=== PATIENT | female | born 1980 | race Caucasian/White ===

== ENCOUNTER 2021-08-27 17:22 | Emergency (ER) | payer BC, SELFPAY ==
[2021-08-27 17:35] VITALS: BP 124/82; PULSE 96; RESP 18; TEMP 36.1; O2SAT 100
--- NOTE | 2021-08-27 19:11 | ED.GENADULT ---
HPI - General Adult General Chief complaint: Skin/Abscess/Foreign Body Stated complaint: EXPOSED TO FISH TB 26WEEKS PREG Time Seen by Provider: 08/27/21 19:04 Source: patient Mode of arrival: ambulatory Limitations: no limitations History of Present Illness HPI narrative: Patient is a 40 y/o female who presents to the ED with c/o a rash to her bilateral hands. Patient reports she has working in her fish tank filled with water and fish every day for the last week and a half. She noticed that a few of her fish began to look ill since working in the tank. Over the last couple days, she has noticed a mild rash to bilateral dorsal hands. The rash is itchy and burning. Denies significant pain. She denies having any open wounds, but does note she recently clipped her cuticles and did bleed from a few fingers. 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 Patient states she otherwise feels fine and denies any fever, chills, nausea, vomiting, cough, shortness of breath. Patient is currently 26 weeks . G2, P1. [employer] TE[employer] is Dr. Marely Trinh. Denies any abdominal pain, vaginal bleeding, leakage of fluid, urinary symptoms. She is feeling baby move. Related Data Allergies Allergy/AdvReac Type Severity Reaction Status Date / Time No Known Allergies Allergy Verified 08/27/21 17:38 Review of Systems Review of Systems: CONSTITUTIONAL: Denies fever, chills. RESPIRATORY: Denies cough or dyspnea. GASTROINTESTINAL: Denies abdominal pain, nausea, vomiting, or diarrhea. GENITOURINARY: Denies vaginal bleeding, leakage of fluid, dysuria, or hematuria. SKIN: Reports itchy/burning rash to bilateral dorsal hands. MUSCULOSKELETAL: Denies joint pain. NEUROLOGIC: Denies headache, numbness, or weakness. All systems reviewed & are unremarkable except as noted in HPI and below [facility] Past Medical History Medical History (Updated 08/28/21 @ 02:39 by Lindsay Loya PA-C) Granuloma annulare Surgical History Surgical History (Updated 08/27/21 @ 21:02 by Lindsay Loya PA-C) History of delivery Social History Social History (Updated 08/27/21 @ 21:02 by Lindsay Loya PA-C) Smoking status: Never smoker Exam Narrative: GENERAL: Well appearing, well-nourished, non-toxic, in no acute distress. HEAD: Normocephalic, atraumatic. NECK: Supple. No adenopathy, no masses. RESPIRATORY: Airway patent, respirations nonlabored. CARDIOVASCULAR: Regular rate and rhythm without murmurs, rubs, or gallops. Radial pulses 2+ and equal bilaterally. MUSCULOSKELETAL: Moves all extremities. Strength/ROM intact without gross deformities. SKIN: Warm, dry, normal color. Small patches of eczematous inflammation and papules to bilateral dorsal hands, over area of 1st & 2st metacarpals. No vesicles or pustules. Dry skin. Mild erythema. No tenderness to palpation. NEURO: A&O X3. Speech clear. Cranial nerves II-XII grossly intact. Steady gait. No ataxic movements. PSYCHIATRIC: Appropriate mood and affect. Normal interaction. Course Consultations Consultation #1: Discussed case with Dr. Roldan, [employer] TE[employer] on-call for Dr. Marely Trinh. Agreed with topical steroid cream. Advised patient to follow up in the office for further evaluation. Date: 08/27/21 Time: 21:00 Vital Signs Vital signs: Vital Signs Temperature 97.0 F L 08/27/21 17:35 Pulse Rate 96 08/27/21 17:35 Respiratory Rate 18 08/27/21 17:35 Blood Pressure 124/82 08/27/21 17:35 Pulse Oximetry 100 08/27/21 17:35 Temperature 97.0 F L 08/27/21 17:35 Pulse Rate 96 08/27/21 17:35 Respiratory Rate 18 08/27/21 17:35 Blood Pressure 124/82 08/27/21 17:35 Pulse Oximetry 100 08/27/21 17:35 Medical Decision Making [facility] Narrative Medical decision making narrative: Patient presented to ED with a few day history of rash to bilateral hands after working in fish tank. Currently 26 weeks . Vital signs stable upon arrival.
[2021-08-27 20:23] LABS: Basophils Percent Auto 0.3 % (0.2-1.2); Eosinophils Absolute Auto 0.2 K/mm3 (0-0.3); Eosinophils Percent Auto 1.5 % (0-4.4); Hematocrit 36.5 % (37.0-47.0); Hemoglobin 12.4 g/dL (12.0-15.0); Immature Granulocyte Absolute 0.09 K/mm3 (0.00-0.031); Immature Granulocyte Percent A 0.8 % (0-0.5); Lymphocytes Absolute Auto 2.78 K/mm3 (0.9-3.2); Mean Corpuscular Hemoglobin 31.8 pg (26-34); Mean Corpuscular Volume 93.6 fl (80-100); Mean Platelet Volume 9.9 fl (7.4-10.4); Monocytes Absolute Auto 0.8 K/mm3 (0.1-0.6); Monocytes Percent Auto 7.2 % (2.6-8.5); Neutrophils Absolute Auto 6.9 K/mm3 (1.3-6.7); Neutrophils Percent Auto 64.2 % (45.5-73.1); Platelet Count Result 210 k/mm3 (150-375); Red Cell Distribution Width 13.4 % (11.5-14.5); White Blood Count 10.7 K/mm3 (4.5-10.0)
[2021-08-27 20:33] LABS: Alanine Aminotransferase 19 U/L (6-35); Albumin Level 3.7 g/dL (3.5-5.1); Alkaline Phosphatase 87 U/L (38-126); Anion Gap 3 mmol/L (8-16); Aspartate Amino Transferase 25 U/L (14-36); Bilirubin,Total 0.2 mg/dL (0.2-1.3); Blood Urea Nitrogen 6 mg/dL (7-17); Calcium 8.7 mg/dL (8.4-10.2); Carbon Dioxide 21 mmol/L (22-30); Chloride 107 mmol/L (98-107); Estimated Glomerular Filt Rate > 60; Glucose 94 mg/dL (65-110); Potassium 3.8 mmol/L (3.4-5.0); Sodium 131 mmol/L (137-145)
== END 2021-08-27 21:29 | disposition home or self-care (01) ==
PROVIDERS: Physician Assistant; Emergency Provider General Practice; PCP Family Medicine
DX: R21 Rash and other nonspecific skin eruption (principal); Z33.1 Pregnant state, incidental
CPT/HCPCS: 36415; 80053; 85025; 99283

== ENCOUNTER 2021-09-09 08:40 | Observation (INO) | payer BC, SELFPAY ==
[2021-09-09 08:51] VITALS: BP 117/64; PULSE 111
[2021-09-09 09:00] VITALS: BP 114/80; PULSE 119
[2021-09-09 09:07] VITALS: BMI 35.9
--- NOTE | 2021-09-09 09:07 | OBADM ---
This patient, Darshana Min, admitted to the OB room OB Post 117 for observation. Patient/family oriented to hospital policies and general routines including ID bracelet, bed and alarms, visiting hours, pain management, procedures, bathroom and other care routines, personal items, smoking policy, room service/diet, and visiting hours. Patient/Family are encouraged to report perceived risks to care and to ask questions if they do not understand what they are told or what they should do.
[2021-09-09 09:16] VITALS: BP 106/70; PULSE 110
[2021-09-09 09:20] LABS: Appearance Urine Slightly Cloudy (Clear); Bilirubin Urine Negative (Negative); Blood Urine Negative (Negative); Color Urine Yellow (Yellow); Glucose Urine UA Negative (Negative); Ketones Urine Trace mg/dL (Negative); Leukocyte Esterase Ur Negative LEU/UL (Negative); Nitrate Urine Negative (Negative); Protein Urine 1+ mg/dL (Negative); Specific Grav Ur 1.025 (1.001-1.035); Urobilinogen Urine 0.2 mg/dL (<2.0); pH Urine 6.5 (5.0-9.0)
[2021-09-09 09:24] LABS: Bacteria Urine Trace /hpf; Mucus Urine Rare /lpf; Squamous Epithelial Cell Urine Many /hpf (Few)
[2021-09-09 09:30] VITALS: BP 103/78; PULSE 109
[2021-09-09] MEDS: ACETAMINOPHEN 500 MG TABLET 1000 MG PO (09:33)
[2021-09-09 10:12] LABS: Add Urine Microscopic? YES
--- NOTE | 2021-09-19 08:10 | P.PNOB_ITS ---
OB - Triage/Final Diagnosis Visit Information Date of evaluation: 09/09/21 Reason for evaluation: other (abdominal pain) Comments/Additional reasons for admission: I have assessed the risk for this patient, Darshana Shila Min, and determined that she would benefit from observation care. Evaluation Laboratory results: Laboratory Tests 09/09/21 09:12 Urine Color Yellow Urine Appearance Slightly cloudy Urine pH 6.5 Ur Specific [place] 1.025 Urine Protein 1+ H Urine Glucose (UA) Negative Urine Ketones Trace Ur Blood (Man) Negative Urine Nitrate Negative Urine Bilirubin Negative Urine Urobilinogen 0.2 Leukocyte Esterase Rfl Negative Urine RBC 3-5 H Urine WBC 4-6 H Ur Squamous Epith Cells Many H Urine Bacteria Trace Urine Mucus Rare
== END 2021-09-09 09:43 | disposition home or self-care (01) ==
PROVIDERS: Admitting Provider Student in an Organized Health Care Education/Training Program; PCP Family Medicine; Visit Provider Student in an Organized Health Care Education/Training Program
DX: O26.899 Other specified pregnancy related conditions, unspecified trimester (principal); R10.9 Unspecified abdominal pain; Z3A.00 Weeks of gestation of pregnancy not specified
CPT/HCPCS: 81001; A9270; G0378; G0379

== ENCOUNTER 2021-10-05 10:08 | Outpatient (RCR) | payer BC, SELFPAY | END 2021-11-23 12:37 | disposition home or self-care (01) | LOC: ANHDMC 10:08 | PROVIDERS: PCP Family Medicine; Visit Provider Obstetrics & Gynecology | DX: O24.319 Unspecified pre-existing diabetes mellitus in pregnancy, unspecified trimester (principal); Z71.89 Other specified counseling; Z3A.00 Weeks of gestation of pregnancy not specified | CPT/HCPCS: G0108 ==

== ENCOUNTER 2021-11-24 08:57 | Outpatient (CLI) | payer BC, SELFPAY ==
[2021-11-24 09:25] LABS: Hematocrit 30.4 % (37.0-47.0); Hemoglobin 9.8 g/dL (12.0-15.0); Mean Corpuscular HGB Conc 32.2 g/dl (32-36); Mean Corpuscular Hemoglobin 30.4 pg (26-34); Mean Corpuscular Volume 94.4 fl (80-100); Mean Platelet Volume 11.1 fl (7.4-10.4); Platelet Count Result 187 k/mm3 (150-375); Red Blood Count 3.22 M/mm3 (4.2-5.4); Red Cell Distribution Width 15.9 % (11.5-14.5); White Blood Count 6.5 K/mm3 (4.5-10.0)
[2021-11-26 07:51] LABS: Rapid Plasma Reagin Non-Reactive (NonReactive)
== END 2021-11-24 08:58 | disposition home or self-care (01) ==
LOC: ANHLAB 08:58
PROVIDERS: PCP Family Medicine; Visit Provider Obstetrics & Gynecology
DX: Z34.90 Encounter for supervision of normal pregnancy, unspecified, unspecified trimester (principal); Z3A.00 Weeks of gestation of pregnancy not specified
CPT/HCPCS: 36415; 85027; 86592; 86850; 86900; 86901

== ENCOUNTER 2021-11-26 04:48 | Inpatient (IN) | payer BC, SELFPAY ==
--- NOTE | 2021-11-22 16:29 | PM.IMHP ---
H&P: HPI History of Present Illness Date/Time: 11/22/21 16:29 Chief Complaint: Term with previous section and desiring permanent sterilization Narrative: Cyst 41 year 3 para 1011 whose last menstrual period was 02/27/2021, EDC is 12/02/2021, who presents at 39 weeks gestation for repeat section and bilateral tubal ligation. She had gestational high diabetes with this but has been diet controlled. She has good dates with a 7 week ultrasound confirming dates. She understands that a tubal ligation as a permanent irreversible procedure with a failure rate of 06/999 subsequent risk of ectopic bleeding and . She is negative for group B strep under has been otherwise uncomplicated PMFSH Past Medical History Medical History Granuloma annulare Surgical History Surgical History History of delivery Social History Social History Smoking status: Never smoker Substance use: never Spiritual care concerns: No Meds Home Medications and Allergies Home Medications Medication Instructions Recorded Confirmed Type omeprazole 20 mg capsule,delayed 20 mg PO DAILY 11/01/21 11/01/21 History release prenat.vits,ismael,bma-cawi-wwpni 1 tablet PO DAILY 11/01/21 11/01/21 History Allergies Allergy/AdvReac Type Severity Reaction Status Date / Time No Known Allergies Allergy Verified 11/01/21 12:43 Exam Chest: Chest palpation & inspection: normal inspection of the chest Resp: Effort & Inspection: normal respiratory effort Cardio: Rate: regular rate Rhythm: regular rhythm GI: Inspection: normal to inspection and other (Soft gravid uterus is palpable) : External Female Exam: normal external appearance Speculum Exam - Vagina: normal appearance of the vagina Speculum Exam - Cervix: normal appearance of the cervix Bimanual exam- vagina & uterus: enlarged (Soft and gravid) Assessment and Plan Assessment and plan (1) History of delivery: Code(s): Z98.891 - History of uterine scar from previous surgery Status: Acute (2) Term : Code(s): Z34.90 - Encounter for supervision of normal , unspecified, unspecified trimester Status: Acute (3) Sterilization: Code(s): Z30.2 - Encounter for sterilization Status: Acute Plan Repeat low transverse section and bilateral tubal ligation
[2021-11-26] VITALS (63 sets, daily range): BP systolic 45–132; BP diastolic 23–106; PULSE 71–136; RESP 15–19; TEMP 36.1–36.9; O2SAT 94–100; BMI 37.8
--- NOTE | 2021-11-26 04:48 | LDADM ---
This patient, Darshana Min, was admitted to Labor/Delivery/Recovery 119 on 11/26/21 at 04:48. Plans for labor, pain management and were discussed with patient. Patient/family oriented to hospital policies and general routines including ID bracelet, bed and alarms, visiting hours, pain management, procedures, bathroom and other care routines, personal items, smoking policy, room service/diet and guest tray routines, security routines, and visiting hours. Patient/Family are encouraged to report perceived risks to care and to ask questions if they do not understand what they are told or what they should do. See OBIX for further documentation.
[2021-11-26] MEDS: LACTATED RINGERS 1,000 ML 125 ML IV CONT ×3 (05:22→07:15)
--- NOTE | 2021-11-26 06:11 | WPDHPUPDATE1 ---
History and Physical Update Update Date/Time: 11/26/21 06:11 History and Physical has been reviewed, including an updated exam of the patient. There are NO changes in the patient's condition. Risks, benefits, and alternatives have been discussed and questions answered. Patient agrees to proceed with procedure.
--- NOTE | 2021-11-26 06:43 | P.PNAN_ITS ---
Anes - Eval Pre Procedure Procedure: Operation Date: 11/26/21 07:30 Proposed Procedures p Repeat Section - Alin Trinh MD Date/Time: 11/26/21 06:43 Surgeon: Repeat c section with BTL Preop Diagnosis: Previous c section, desires sterility Pre Op Diagnosis: Repeat C/S Patient Data Age: 41 Gender: F Height: 1.47 m Weight: 82 kg Last Vital Signs Temp 97.9 F 11/26/21 05:22 Pulse 107 H 11/26/21 06:30 BP 104/75 11/26/21 06:30 O2 Del Method Room Air 11/26/21 05:15 Allergies Allergy/AdvReac Type Severity Reaction Status Date / Time No Known Allergies Allergy Verified 11/01/21 12:43 Home Medications Medication Instructions Recorded Confirmed Type omeprazole 20 mg capsule,delayed 20 mg PO DAILY 11/01/21 11/26/21 History release prenat.vits,ismael,weh-ndig-wjvwr 1 tablet PO DAILY 11/01/21 11/26/21 History hydrocodone 5 mg-acetaminophen 325 1 tablet PO Q4H PRN pain #30 tabs 11/26/21 Rx mg tablet Patient hx anesthesia problems: none Family hx anesthesia problems: none Results Review: All pre-operative results and documents have been reviewed as part of the pre- operative evaluation. [facility] Past Medical History Medical History Anxiety Anxiety and depression Granuloma annulare Obesity Surgical History Surgical History History of delivery Social History Social History Smoking status: Former smoker Tobacco type: cigarettes Second hand tobacco smoke exposure: No Substance use: never Spiritual care concerns: No Exam Day of Procedure 11/26/21 06:43 Patient weight: obese Airway: Mallampati scale class II
[2021-11-26] MEDS: ceFAZolin 2 GM/D5W 50 ML 2 GM/50 ML BAG IVPB (06:57)
--- NOTE | 2021-11-26 07:14 | P.PNAN_ITS ---
Anes - Eval Final PreProcedure Day of Procedure 11/26/21 07:14 Patient weight: overweight Heart: regular rate and rhythm Lungs: clear to auscultation Airway: Mallampati scale class III Neurological: alert and oriented Last oral intake: >/= 8 hours ASA classification: III Emergent: no Anesthetic plan: proceed Anesthesia type and monitoring: general Other findings: GDM Results Review: All pre-operative results and documents have been reviewed as part of the pre- operative evaluation. Informed Consent: The patient's anesthetic plan and its attendant risks and benefits were discussed with the patient/family/POA. Questions were solicited and answers provided to the satisfaction of the patient/family/POA.
--- NOTE | 2021-11-26 07:43 | P.OP_ITS ---
Procedure Note - Detailed Date of Procedure 11/26/21 Pre-op Diagnosis Repeat C/S. Desires permanent sterilization Post-op Diagnosis Same Procedure Performed repeat low-transverse section and right tubal ligation via modified P omeroy method Surgeon Alin Trinh MD Anesthesia Spinal Indications this is a 41-year-old female with previous section and previous left salpingo-oophorectomy at term for repeat section and right tubal ligation Findings male infant Apgars 8 9 left ovary and tube surgically absent Description of Procedure the patient is prepped draped in the normal sterile fashion placed in the dorsal lithotomy position under excellent general spinal anesthetic the abdomen was entered in Pfannenstiel fashion progressive layers of fascia. Fascia incised midline carried in upward outward fashion bilaterally. The underlying muscles were sharply dissected. Parietal peritoneum 0 by Paz clamps and by sharp dissection. This was carried superiorly and inferiorly to the dome of the bladder. Bladder blade was placed. Bladder flap was formed. A low-transverse incision made. The head delivered in the TITUS position. Anterior posterior shoulder delivered spontaneously. Cord clamped x2 and cut. Infant passed off the table and excellent clot cry. Placenta delivered intact manually. Uterus removed from the abdomen and wrapped in moist towel. After to removing debris and blood from the uterus. The uterus was then closed with continuous running 0V Vicryl from lateral edge to lateral edge. This was followed by 2nd imbricating running locking 0 Vicryl from lateral edge to lateral edge. The left fallopian tube was surgically absent. The right fallopian tube was grasped at its midportion. A good knuckle of tube was formed and free tied with 0 c hromic. The peritoneum between pierced. The distal and proximal legs were then free tied with 0 chromic. The portion of tube between the removed and passed off as portion of right fallopian tube. Hemostasis was assured uterus returned the abdomen. The clots and debris are removed from the uterus. The laps removed and accounted for. The fascia closed with continuous running 0 Vicryl from lateral edge to midline bilaterally. Irrigation subcutaneous layer and the skin closed with 4 Monocryl and glue. Blood loss was estimated at 375. All sponge, needle, instrument counts were correct. There were no immediate complications as mom and baby doing fine at the time of this dictation Estimated Blood Loss 375 Drains No Packing No Pathology Yes ( portion of right fallopian tube) Complications No immediate complications Condition Stable Disposition PACU
[2021-11-26] MEDS: KETOROLAC 30 MG/ML VIAL (*BKC) 15 MG IV PUSH (08:01)
[2021-11-26] MEDS: MORPHINE SULFATE INJ (*CRX) 10 MG/ML AMP 2 MG IV PUSH ×3 (09:21→09:56)
--- NOTE | 2021-11-26 10:10 | PC.NURSE ---
Patient transferred to post room #291 via stretcher. Support person present. Oriented to unit, room, information board, rooming in, admission packet and security measures. Patient verbalizes understanding.
[2021-11-26] MEDS: OXYTOCIN 30 UNITS/NS 500 ML 30 UNITS/500 ML BAG 125 UNITS IV CONT (10:36)
[2021-11-26] MEDS: KETOROLAC 30 MG/ML VIAL (*BKC) IV PUSH (11:14)
[2021-11-26 13:26] LABS: Glucose Point of Care 116 mg/dl (65-105)
[2021-11-26] MEDS: DEXTROSE 5%/0.45% SOD CHL 1,000 ML 125 ML IV CONT (14:10)
[2021-11-26] MEDS: POLYSACCHARIDE IRON COMPLEX 150 MG CAPSULE PO (16:31)
[2021-11-26] MEDS: DOCUSATE SODIUM 100 MG CAPSULE PO (16:31)
[2021-11-26] MEDS: HYDROcodone/acetaminophen (*CRX) 10-325 MG TABLET 1 TAB PO ×2 (16:32→20:42)
[2021-11-26] MEDS: IBUPROFEN 600 MG TABLET PO (20:41)
[2021-11-27 00:20] VITALS: BP 98/53; PULSE 92; RESP 16; TEMP 36.6; O2SAT 96
[2021-11-27 04:10] VITALS: BP 104/63; PULSE 88; RESP 18; TEMP 36.6; O2SAT 99
[2021-11-27] MEDS: HYDROcodone/acetaminophen (*CRX) 10-325 MG TABLET 1 TAB PO ×4 (04:36→22:04)
[2021-11-27] MEDS: IBUPROFEN 600 MG TABLET PO ×3 (04:37→19:12)
[2021-11-27 05:26] LABS: Basophils Percent Auto 0.2 % (0.2-1.2); Eosinophils Absolute Auto 0.1 K/mm3 (0-0.3); Eosinophils Percent Auto 0.8 % (0-4.4); Hematocrit 24.8 % (37.0-47.0); Hemoglobin 7.8 g/dL (12.0-15.0); Immature Granulocyte Absolute 0.04 K/mm3 (0.00-0.031); Immature Granulocyte Percent A 0.4 % (0-0.5); Lymphocytes Absolute Auto 1.52 K/mm3 (0.9-3.2); Lymphocytes Percent Auto 16.8 % (18.3-44.2); Mean Corpuscular HGB Conc 31.5 g/dl (32-36); Mean Corpuscular Volume 95.4 fl (80-100); Mean Platelet Volume 10.8 fl (7.4-10.4); Monocytes Absolute Auto 0.8 K/mm3 (0.1-0.6); Monocytes Percent Auto 8.8 % (2.6-8.5); Neutrophils Absolute Auto 6.6 K/mm3 (1.3-6.7); Platelet Count Result 145 k/mm3 (150-375); Red Cell Distribution Width 16.3 % (11.5-14.5); White Blood Count 9.1 K/mm3 (4.5-10.0)
--- NOTE | 2021-11-27 06:49 | P.PNOB_ITS ---
OB - PN: Subj Subjective Date/time seen: 11/27/21 06:49 Patient comments: no complaints and pain well controlled baby status: doing well OB - PN: Obj Data Labs CBC & Chem 7: 11/27/21 05:20 Labs: Laboratory Results - last 24 hr 11/26/21 11/27/21 05:26 05:20 WBC 9.1 RBC 2.60 L Hgb 7.8 L Hct 24.8 L MCV 95.4 MCH 30.0 MCHC 31.5 L RDW 16.3 H Plt Count 145 L MPV 10.8 H Immature Gran % (Auto) 0.4 Neut % (Auto) 73.0 Lymph % (Auto) 16.8 L Isabella % (Auto) 8.8 H Eos % (Auto) 0.8 Baso % (Auto) 0.2 Lymph # (Auto) 1.52 Isabella # (Auto) 0.8 H Eos # (Auto) 0.1 Baso # (Auto) 0.0 Abs Immat Gran (auto) 0.04 H Absolute Neuts (auto) 6.6 Absolute Nucleated RBC 0.0 Nucleated RBC % 0.0 POC Capillary Glucose 116 H OB - PN A/P Plan day: 1 Plan: routine care Time Spent With Patient Time: Total time spent is greater than 50% in coordination of care (as documented) at patient's floor/unit and/or counseling patient: Time with patient: less than 15 minutes
--- NOTE | 2021-11-27 06:49 | PM.DS ---
DS: Admitting Diagnosis Discharge Date 11/28/2021 Admitting Diagnosis Term previous section / desires permanent sterilization DS: Discharge Diagnosis Discharge Diagnosis (1) Sterilization: Code(s): Z30.2 - Encounter for sterilization Status: Acute (2) Term : Code(s): Z34.90 - Encounter for supervision of normal , unspecified, unspecified trimester Status: Acute (3) History of delivery: Code(s): Z98.891 - History of uterine scar from previous surgery Status: Acute DS: Summary Hospital Course Reason for hospitalization: repeat section tubal ligation Hospital Course: the patient was admitted for repeat section and right salpinx objective me secondary to desiring permanent sterilization. Her hospital course was unremarkable. She remained afebrile. She was up, voiding difficulty ambulating and general complaints. Routine discharge instructions were given. Time Spent with Patient Time attestation: Total time spent providing and/or coordinating discharge services: DS: Data Data Completed and Pending Pending studies at discharge: Pending at discharge 11/26/21 07:27 Surgical [PTH] Routine Labs on day of discharge: Labs from last 24 hours 11/27/21 11/26/21 05:20 05:26 WBC 9.1 RBC 2.60 L Hgb 7.8 L Hct 24.8 L MCV 95.4 MCH 30.0 MCHC 31.5 L RDW 16.3 H Plt Count 145 L MPV 10.8 H Immature Gran % (Auto) 0.4 Neut % (Auto) 73.0 Lymph % (Auto) 16.8 L [place] % (Auto) 8.8 H Eos % (Auto) 0.8 Baso % (Auto) 0.2 Lymph # (Auto) 1.52 [place] # (Auto) 0.8 H Eos # (Auto) 0.1 Baso # (Auto) 0.0 Abs Immat Gran (auto) 0.04 H Absolute Neuts (auto) 6.6 Absolute Nucleated RBC 0.0 Nucleated RBC % 0.0 POC Capillary Glucose 116 H Discharge Plan Discharge Attending physician on discharge: Alin Ferrera Discharging Clinician: Alin Ferrera Patient Disposition: Home, Self-Care Activity: may shower, no straining, may drive after 2 weeks and pelvic rest Diet: heart healthy Wound Care Instructions: follow printed instructions Discharge Instructions: Education: Mom and Baby Guide Given to: Mother Follow-Up: Call your delivering provider's office for an appointment to be seen in: 1 Week for incision check and 6 weeks for exam Mom and baby should come to the [facility] for the follow-up appointment. Appointment Date/Time: November 29, 2021 at 10:00 am What to expect at your follow-up visit: Blood Pressure Check, Physical Assessment Call [phone] if you are unable to keep your appointment time. BREAST CARE: * Wear a snug supportive bra. * For engorgement discomfort: Breast Feeding: * Apply warm moist washcloths * Express milk as needed to relieve engorgement * Wear loose clothing * For sore nipples: * Identify correct latch-on * Apply warm moist washcloths before and after nursing * Air dry nipples after nursing * May apply Lansinoh cream to nipples ABDOMINAL INCISION: (if applicable) * Allow incision to air dry * Do NOT use lotions for powders on your incision * When showering, allow soap and water to run over the incision, but do not scrub incision EPISIOTOMY/PERINEAL CARE: * Until bleeding stops, use your gorge bottle after urinating * Change your pad frequently throughout the day * No tub baths until seen by your physician - You may shower ACTIVITY: * Rest as much as possible. * Do not exercise or lift anything heavier than your baby (such as laundry or other children.) * Avoid stairs or driving as much as possible for about 2 weeks and no longer taking narcotic pain medication. * Do not put anything into the vagina. No douching, tampons, or sexual activity until seen by physician. NOTIFY PHYSICIAN IF
[2021-11-27 07:50] VITALS: BP 103/76; PULSE 84; RESP 18; TEMP 36.6; O2SAT 100
[2021-11-27 08:00] VITALS: PULSE 84; RESP 18; O2SAT 100
[2021-11-27] MEDS: POLYSACCHARIDE IRON COMPLEX 150 MG CAPSULE PO ×3 (08:00→17:23)
[2021-11-27] MEDS: DOCUSATE SODIUM 100 MG CAPSULE PO ×3 (08:00→17:24)
--- NOTE | 2021-11-27 08:43 | WPDANLDPN2 ---
Anes-Prog Note L&D Date/Time: 11/27/21 08:43 Comfortable throughout: section Neuraxial method: spinal Epidural/Spinal procedure site: clean & non-tender Neuro status: Neuro function grossly intact. Cardiovascular status: normal Respiratory status: normal Airway patency: baseline Mental status: baseline Post-Op hydration status: normal Vital Signs: Last Vital Signs Temp 36.6 C 11/27/21 04:10 Pulse 88 11/27/21 04:10 Resp 18 11/27/21 04:10 BP 104/63 11/27/21 04:10 Pulse Ox 99 11/27/21 04:10 O2 Del Method Room Air 11/26/21 20:35 Pain score (VAS): 04/23 I/O: Intake & Output 11/26/21 11/27/21 11/27/21 23:59 07:59 15:59 Intake Total 300 540 Output Total 925 2095 Balance -625 -735 Post-procedural complaints: none Patient feedback: Patient satisfied with anesthetic care.
--- NOTE | 2021-11-27 08:43 | WPDANLDNPN2 ---
Anes-Prog Note L&D-Neuraxial Date/Time: 11/27/21 08:43 Neuraxial medications: intrathecal PF morphine Opiod-related complaints: none Patient feedback: Patient satisfied with post-operative pain management.
[2021-11-27] MEDS: MULTIVIT/MIN/PREN/FOL AC/IRON TABLET 1 TAB PO (09:00)
[2021-11-27] MEDS: HYDROcodone/acetaminophen (*CRX) 5-325 MG TABLET 1 TAB PO ×2 (12:15→19:12)
--- NOTE | 2021-11-27 14:53 | PC.NURSE ---
[id number] Introductions were made, then consulted with patient to assess needs related to . Mother led the conversation with her?plans to feed?her infant and the?experience so far. Resources provided for inpatient and outpatient services using a resource guide and mom/baby guide. Mother voiced understanding of information and requests assistance since it has been close to 2 1/2 hours from the start of the last . Mother is aware that infant is peeing well. Mother works well with her with encouragement and education. Encouraged understanding of the benefits of skin to skin unwrapping and placing vertically on her chest in a laid-back position, responsive feeding watching for early feeding signs, frequency of feeding on demand about every 8-12 times in 24 hours (every 2-3 hours), removing milk for good milk production and supply, duration of feeding watching , signs of adequate intake/output and how to record on the feeding sheet. Infant placed skin to skin and mother encouraged to stimulate with massaging touch, talking, and changing position to encourage soon. is waking up on mother's chest and showing early feeding cue with no attempt at this time for effort in latching. Informed primary RN of progress. [phone] Mother is working well with her infant. She has latched but is concerned about not sure if the pain is pinching or pulling . Infant detached to assess mother's nipple and it was not misshaped. Reviewed positioning and ear, shoulder, hip alignment, supporting the breast, asymmetrical latch (off-center), and leading with the chin with a big open side gape. latched optimally to the right breast in football position. Education given to mother of how to visualize suck/swallow ratios and listening for drinking at the breast. was able to maintain latch without discomfort to mother. Nipple care reviewed with optimal latch and good positioning. Resources used to facilitate learning were used with the visual handouts, tool, mom and baby guide. Mother voiced understanding of responsive feedings, stimulating with skin to skin, hand expressed colostrum, touch, talking to to encourage if it has been 2 -3 hours since the start of the last , to call if infant does not latch or there is discomfort with . Reported to the primary RN. Reported to primary RN.
[2021-11-27] MEDS: SIMETHICONE 80 MG TAB.CHEW PO ×2 (15:20→19:12)
[2021-11-27 19:15] VITALS: BP 120/73; PULSE 96; RESP 18; TEMP 36.7
[2021-11-28] MEDS: SIMETHICONE 80 MG TAB.CHEW PO ×2 (04:50→10:58)
[2021-11-28] MEDS: HYDROcodone/acetaminophen (*CRX) 5-325 MG TABLET 1 TAB PO (04:50)
[2021-11-28] MEDS: IBUPROFEN 600 MG TABLET PO ×2 (04:51→10:57)
--- NOTE | 2021-11-28 07:10 | PM.OBPNVD ---
OB - PN: Subj Subjective Date/time seen: 11/28/21 07:10 Patient comments: no complaints and pain well controlled baby status: doing well and nursing well OB - PN: Obj Data Labs CBC & Chem 7: 11/27/21 05:20 OB - PN A/P Plan day: 2 Plan: routine care, discharge home and follow up 6 weeks (4 weeks) Time Spent With Patient Time: Total time spent is greater than 50% in coordination of care (as documented) at patient's floor/unit and/or counseling patient: Time with patient: less than 15 minutes
[2021-11-28 07:30] VITALS: BP 107/65; PULSE 85; RESP 18; TEMP 37; O2SAT 99
[2021-11-28] MEDS: DOCUSATE SODIUM 100 MG CAPSULE PO (08:36)
[2021-11-28] MEDS: MULTIVIT/MIN/PREN/FOL AC/IRON TABLET 1 TAB PO (08:36)
[2021-11-28] MEDS: POLYSACCHARIDE IRON COMPLEX 150 MG CAPSULE PO (08:36)
[2021-11-28] MEDS: TETANUS,DIPHTHERIA,AC PERTUSSIS ADULT (0.5 ML) BOOSTRIX IM (08:37)
[2021-11-28 08:45] VITALS: PULSE 96; RESP 18; O2SAT 100
--- NOTE | 2021-11-28 08:45 | PC.NURSE ---
[id number] Mother verbalizes she is able to independently latch with appropriate positioning/alignment. She denies any nipple discomfort and is responsively . is currently meeting outcomes for weight, output, jaundice and feeding frequencies of 8-12 times in 24 hours. Mother declines any additional assistance/education at this time. Mother is encouraged to call for assistance if her doesn?t latch, there is discomfort with latching, and to assess a latch before she goes home. Mother voiced understanding of information shared and mom and baby guide reviewed for additional resource information . Reported to the primary RN.
--- NOTE | 2021-11-28 09:22 | PC.NURSE ---
Patient viewed the discharge video Mother & Baby Care, The First Two Weeks . Patient was given the opportunity and encouraged to ask questions. Patient verbalized understanding of information shared and has been given the mother/baby guide for home reference.
[2021-11-28] MEDS: HYDROcodone/acetaminophen (*CRX) 10-325 MG TABLET 1 TAB PO (10:58)
[2021-11-29 10:24] VITALS: BP 123/79; PULSE 89; RESP 20; TEMP 36.9; O2SAT 100
== END 2021-11-28 11:35 | disposition home or self-care (01) | DRG 785 ==
LOC: ANHLDR 06:12 → ANHOB2 10:17
PROVIDERS: Admitting Provider Obstetrics & Gynecology; PCP Family Medicine; Visit Provider Obstetrics & Gynecology
PROC: 10D00Z1 Extraction of Products of Conception, Low, Open Approach (ICD-10-PCS; CPT 59514; principal; 2021-11-26 07:30)
DX: O34.219 Maternal care for unspecified type scar from previous cesarean delivery (principal); O24.420 Gestational diabetes mellitus in childbirth, diet controlled; Z30.2 Encounter for sterilization; O76 Abnormality in fetal heart rate and rhythm complicating labor and delivery; Z3A.39 39 weeks gestation of pregnancy; Z37.0 Single live birth
CPT/HCPCS: 36415; 82948; 85025; 88302; 90715; A9270; J0690; J1885; J2270; J2274; J2370; J2405; J2590; J7120